=== PATIENT | male | born 1960 | race Caucasian/White ===

== ENCOUNTER 2022-02-03 13:37 | Emergency (ER) | payer SELFPAY ==
[~2022-02-03] VITALS: Ht 157.5 cm; Wt 65.0 kg
[2022-02-03] MEDS ORDERED: HYDROCODONE/ACETAMINOPHEN 10/325MG TABLET PO ONE (22:00)
[2022-02-03] MEDS ORDERED: PROPOFOL 200MG/20ML VIAL IV ONE (22:30)
[2022-02-04] MEDS ORDERED: IBUP-2029 MT (01:17)
[2022-02-04 02:00] VITALS: BP 119/67
== END 2022-02-04 02:21 | disposition home or self-care (01) ==
LOC: ER 13:37
DX: S52.591A Other fractures of lower end of right radius, initial encounter for closed fracture (principal); S52.281A Bent bone of right ulna, initial encounter for closed fracture; E11.9 Type 2 diabetes mellitus without complications; W01.0XXA Fall on same level from slipping, tripping and stumbling without subsequent striking against object, initial encounter; Y93.89 Activity, other specified; Y92.9 Unspecified place or not applicable
CPT/HCPCS: 25605; 73090; 99152; 99285; J2704; A4565

== ENCOUNTER 2022-02-10 12:36 | Emergency (ER) | payer SELFPAY ==
[~2022-02-10] VITALS: Ht 165.1 cm; Wt 66.0 kg
[~2022-02-10 12:36] MED LIST: IBUP-2029 MT
[2022-02-10 12:39] VITALS: BP 109/67
== END 2022-02-10 13:31 | disposition home or self-care (01) ==
LOC: ER 12:48
DX: S42.391A Other fracture of shaft of right humerus, initial encounter for closed fracture (principal); X58.XXXA Exposure to other specified factors, initial encounter; Y93.89 Activity, other specified; Y92.89 Other specified places as the place of occurrence of the external cause; Y99.8 Other external cause status; E11.9 Type 2 diabetes mellitus without complications
CPT/HCPCS: 99281